=== PATIENT | male | born 1980 | race Caucasian/White ===

== ENCOUNTER → 2019-05-26 | Outpatient (CLI) | payer OTHER ==
[~2019-05-26] MED LIST: BUPIVACAINE/PF 0.5% ONE; LIDOCAINE 1%, 10ML ONE; ROPivacaine/PF 0.2%, 10 ML ONE
== END | disposition home or self-care (01) ==
LOC: RAD 12:35
PROVIDERS: ATTEND Orthopaedic Surgery
DX: S43.431A Superior glenoid labrum lesion of right shoulder, initial encounter (principal); X58.XXXA Exposure to other specified factors, initial encounter; Y93.89 Activity, other specified; Y92.89 Other specified places as the place of occurrence of the external cause; Y99.8 Other external cause status; M21.921 Unspecified acquired deformity of right upper arm
CPT/HCPCS: 73040; 73222; J3490; J2795